=== PATIENT | female | born 1990 | race Caucasian/White ===

== ENCOUNTER 2020-06-02 13:49 | Observation (INO) | payer OTHER, SELFPAY ==
[2020-06-02] VITALS (7 sets, daily range): BP systolic 116–144; BP diastolic 59–78; PULSE 83–102; RESP 18; TEMP 36.5–37.1; O2SAT 98
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
--- NOTE | 2020-06-02 14:03 | PC.NURSE ---
OB at bedside to monitor activity.
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
--- NOTE | 2020-06-02 14:21 | PC.NURSE ---
Pt to OB via w/c.
--- NOTE | 2020-06-02 14:23 | OBADM ---
This patient, Sawti Guzman, admitted to the OB room OB Post 115 for observation. Patient/family oriented to hospital policies and general routines including ID bracelet, bed and alarms, visiting hours, pain management, procedures, bathroom and other care routines, personal items, smoking policy, room service/diet, and visiting hours. Patient/Family are encouraged to report perceived risks to care and to ask questions if they do not understand what they are told or what they should do.
--- NOTE | 2020-06-02 16:15 | PC.NURSE ---
Dr. Light in OB unit. Strip reviewed. Order for ultrasound received- BPP and placental check.
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
--- NOTE | 2020-06-02 16:51 | PC.NURSE ---
Patient returned from ultrasound via wheelchair.
--- NOTE | 2020-06-02 17:55 | PC.NURSE ---
Dr. Light notified of KB result of positive. Order to keep patient for 24 hour observation.
[2020-06-03 00:18] VITALS: BP 116/67; PULSE 81
[2020-06-03 00:21] VITALS: TEMP 36.6
[2020-06-03 05:40] VITALS: BP 105/72; PULSE 82
[2020-06-03 06:59] VITALS: BP 122/63; PULSE 81
[2020-06-03 07:00] VITALS: BMI 27.1
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
[2020-06-03 11:56] VITALS: BP 122/73; PULSE 80
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
== END 2020-06-03 13:23 | disposition home or self-care (01) ==
LOC: ANHED 14:12 → ANHOBPP 14:26
PROVIDERS: Admitting Provider Obstetrics & Gynecology; Emergency Provider Emergency Medicine; Visit Provider Obstetrics & Gynecology
DX: O26.892 Other specified pregnancy related conditions, second trimester (principal); R10.9 Unspecified abdominal pain; V89.2XXA Person injured in unspecified motor-vehicle accident, traffic, initial encounter; Z3A.28 28 weeks gestation of pregnancy
CPT/HCPCS: 36415; 76815; 76819; 85460; 99285; G0378